=== PATIENT | male | born 1955 | race Caucasian/White ===

== ENCOUNTER → 2016-11-01 | Outpatient (CLI) | payer BC ==
[~2016-11-01] MED LIST: FLUO20CA35 PO; XNX25 PO
--- NOTE | 2016-11-01 09:57 | DIAGNOSTIC IMAGING REPORT ---
(BARIUM SWALLOW) ESOPHAGUS CLINICAL HISTORY: Reflux, epigastric discomfort. COMPARISON STUDY: None FLUOROSCOPY TIME: 1.1 minute. 25 fluoroscopic spot images were acquired.. FINDINGS: The patient swallowed effervescent granules and barium without difficulty. Rapid sequence swallowing in the AP and lateral projections reveal no aspiration. No esophageal masses or ulcerations were visualized. There is mild reflux. The patient swallowed a 1/2 inch barium tablet which freely passed into the stomach. IMPRESSION: 1. No mass identified 2. Mild reflux 3. The patient swallowed a 1/2 inch barium tablet which freely passed the stomach Electronically signed by: Ruben Gamble M.D. 11/01/2016 9:56 AM Dictated Date/Time: 11/01/2016 9:54 AM
== END | disposition home or self-care (01) ==
LOC: C.RAD 09:25
PROVIDERS: ATTEND Internal Medicine Gastroenterology
DX: K21.9 Gastro-esophageal reflux disease without esophagitis (principal)

== ENCOUNTER 2018-01-02 01:52 | Emergency (ER) | payer BC ==
[~2018-01-02] VITALS: Ht 188 cm; Wt 95.8 kg
[2018-01-02 01:58] VITALS: TEMP 36.7; Ht 188 cm; Wt 95.8 kg
[2018-01-02 02:27] LABS: BASO % 0.3 %; BASO ABS # 0.02 K/uL (0-0.2); EOS % 2.3 %; EOS ABS # 0.14 K/uL (0-0.5); HEMATOCRIT 40.6 % (42-52); HEMOGLOBIN 13.7 g/dL (14.0-18.0); IG# 0.02 K/uL (0.00-0.02); LYMPH % 20.7 %; LYMPH ABS # 1.28 K/uL (1.2-3.4); MEAN CELL VOLUME 82.2 fL (80-100); MEAN CORPUSCULAR HEMOGLOBIN 27.7 pg (25-34); MEAN CORPUSCULAR HGB CONC 33.7 g/dl (32-36); MONO % 9.1 %; MONO ABS # 0.56 K/uL (0.11-0.59); NEUT % 67.3 %; NEUT ABS # 4.16 K/uL (1.4-6.5); PLATELET COUNT 193 K/uL (130-400); RED CELL DISTRIBUTION WIDTH CV 13.2 % (11.5-14.5); RED CELL DISTRIBUTION WIDTH SD 39.9 fL (36.4-46.3); WHITE BLOOD COUNT 6.18 K/uL (4.8-10.8)
[2018-01-02] MEDS ORDERED: DIPHTHERIA/TETANUS/PERTUSSIS 0.5 ML SYR/VIAL IM. ONE (02:30)
[2018-01-02 02:45] LABS: ALBUMIN 3.9 gm/dl (3.4-5.0); ALT/SGPT 26 U/L (12-78); AST/SGOT 20 U/L (15-37); BLOOD UREA NITROGEN 28 mg/dl (7-18); CALCIUM 9.4 mg/dl (8.5-10.1); CARBON DIOXIDE 27 mmol/L (21-32); CREATININE 1.37 mg/dl (0.60-1.40); GLUCOSE 99 mg/dl (70-99); POTASSIUM 3.9 mmol/L (3.5-5.1); SODIUM 136 mmol/L (136-145)
[2018-01-02] MEDS ORDERED: SODIUM CHLORIDE 0.9% 1000ML 1,000 ML IV STA (02:49)
[2018-01-02 02:55] LABS: ALKALINE PHOSPHATASE 83 U/L (45-117); TOTAL PROTEIN 7.5 gm/dl (6.4-8.2)
[2018-01-02 03:05] VITALS: O2SAT 98
[2018-01-02] MEDS ORDERED: ALBUTEROL HFA 8 GM INHALER INH STA (03:15)
[2018-01-02 03:41] VITALS: BP 146/98; PULSE 77
[2018-01-02] MEDS ORDERED: AZITTAB PO (03:52)
--- NOTE | 2018-01-02 04:39 | EMERGENCY ROOM VISIT NOTE ---
History First contact with patient: 01:55 Chief Complaint: FALL Stated Complaint: FALL/LACERATION/SHOULDER INJURY History of Present Illness The patient is a 62 year old male who presents to the Emergency Room with complaints of near syncopal fall or getting up to go the bathroom who hit his shoulder and head. Patient states he has been suffering from a cold all week. Other members in his family are sick. Patient complains of right shoulder pain , cough and congestion. Patient states he did not completely pass out. Patient denies headache, neck pain, chest pain, dyspnea, back pain, numbness, tingling, localized weakness. Tetanus is current. Review of Systems An 10 system review of systems was completed with positives and pertinent negatives listed in the HPI. Past Medical/Surgical History Orthopedic problems Social History Smoking Status: Never Smoker Smokeless Tobacco Use: No Alcohol Use: occasionally Drug Use: none Marital Status: Housing Status: lives with family Occupation Status: employed Current/Historical Medications Scheduled Azithromycin (Zithromax Z-Ministerio), 0 PO UD Fluoxetine (Prozac), 20 MG PO DAILY Physical Exam Vital Signs Date Time Temp Pulse Resp B/P (MAP) Pulse Ox O2 Delivery O2 Flow Rate FiO2 01/02/18 03:41 77 22 146/98 Room Air 01/02/18 03:05 66 19 146/98 98 Room Air 01/02/18 02:13 73 01/02/18 02:08 Room Air 01/02/18 01:58 36.7 68 20 137/93 98 Room Air Physical Exam PHYSICAL EXAM: VITALS: Vitals are noted on the nurse's note and reviewed by myself. Vital signs stable. GENERAL: Pleasant male answering questions appropriately, in no acute distress, nondiaphoretic, well-developed well-nourished. SKIN: Left cheek with superficial abrasion that appears clean without foreign body. The rest of the skin was without obvious lacerations or abrasions. Capillary reflex less than 2 seconds. HEAD: Normocephalic atraumatic. EARS: External auditory canals clear, tympanic membranes pearly casillas without erythema or effusion bilaterally. No hemotympanums. No garcia sign. No mastoid tenderness. EYES: Pupils equal round and reactive to light and accommodation. Conjunctivae without injection, sclerae without icterus. Extraocular movements intact. NOSE: Patent, turbinates without inflammation or discharge. No sinus tenderness. No septal hematoma or bleeding. FACE: No facial bone tenderness. Full range of motion of the jaw without tenderness. MOUTH: Mucous membranes moist. Pharynx without erythema or exudate. Uvula midline. Airway patent. Tongue does not deviate. NECK: Supple without nuchal rigidity. Cervical spine is nontender. Full range of motion of the neck without tenderness. No JVD. HEART: Regular rate and rhythm without murmurs gallops or rubs. LUNGS: Clear to auscultation bilaterally without wheezes, rales or rhonchi. No dullness to percussion. No retractions or accessory muscle use. No chest wall tenderness. ABDOMEN: Positive bowel sounds x 4. Normal tympanic percussion. Soft, nontender, without masses or organomegaly. No guarding or rebound tenderness. MUSCULOSKELETAL: No tenderness of the thoracic or lumbar spine. Right AC tender to palpation concerning for separation. Increased pain with range of motion of the right shoulder. No right clavicular tenderness. Full range of motion without tenderness to palpation in all other extremities. Normal gait. NEURO: Patient was alert and oriented to person place and time. Normal sensation to light and sharp touch. Cerebellar function intact. No focal neurological deficits. Medical Decision & Procedures Laboratory Results 01/02/18 02:15 Red Blood Count 4.94, Mean Corpuscular Volume 82.2, Mean Corpuscular Hemoglobin 27.7, Mean Corpuscular Hemoglobin Concent 33.7, Mean Platelet Volume 10.0, Neutrophils (%) (Auto) 67.3, Lymphocytes (%) (Auto) 20.7, Monocytes (%) (Auto) 9.1, Eosinophils (%) (Auto) 2.3, Basophils (%) (Auto) 0.3, Neutrophils # (Auto) 4.16, Lymphocytes # (Auto) 1.28, Monocytes # (Auto) 0.56, Eosinophils # (Auto) 0.14, Basophils # (Auto) 0.02 01/02/18 02:15 Test 01/02/18 02:15 White Blood Count 6.18 K/uL (4.8-10.8) Red Blood Count 4.94 M/uL (4.7-6.1) Hemoglobin 13.7 g/dL (14.0-18.0) Hematocrit 40.6 % (42-52) Mean Corpuscular Volume 82.2 fL (80-100) Mean Corpuscular Hemoglobin 27.7 pg (25-34) Mean Corpuscular Hemoglobin Concent 33.7 g/dl (32-36) Platelet Count 193 K/uL (130-400) Mean Platelet Volume 10.0 fL (7.4-10.4) Neutrophils (%) (Auto) 67.3 % Lymphocytes (%) (Auto) 20.7 % Monocytes (%) (Auto) 9.1 % Eosinophils (%) (Auto) 2.3 % Basophils (%) (Auto) 0.3 % Neutrophils # (Auto) 4.16 K/uL (1.4-6.5) Lymphocytes # (Auto) 1.28 K/uL (1.2-3.4) Monocytes # (Auto) 0.56 K/uL (0.11-0.59) Eosinophils # (Auto) 0.14 K/uL (0-0.5) Basophils # (Auto) 0.02 K/uL (0-0.2) RDW Standard Deviation 39.9 fL (36.4-46.3) RDW Coefficient of Variation 13.2 % (11.5-14.5) Immature Granulocyte % (Auto) 0.3 % Immature Granulocyte # (Auto) 0.02 K/uL (0.00-0.02) Anion Gap 5.0 mmol/L (3-11) Est Creatinine Clear Calc Drug Dose 65.9 ml/min Estimated GFR () 64.1 Estimated GFR (Non- 55.3 BUN/Creatinine Ratio 20.1 (10-20) Calcium Level 9.4 mg/dl (8.5-10.1) Total Bilirubin 0.3 mg/dl (0.2-1) Direct Bilirubin < 0.1 mg/dl (0-0.2) Aspartate Amino Transf (AST/SGOT) 20 U/L (15-37) Alanine Aminotransferase (ALT/SGPT) 26 U/L (12-78) Alkaline Phosphatase 83 U/L (45-117) Troponin I < 0.015 ng/ml (0-0.045) Total Protein 7.5 gm/dl (6.4-8.2) Albumin 3.9 gm/dl (3.4-5.0) Thyroid Stimulating Hormone (TSH) 4.760 uIu/ml (0.300-4.500) Medications Administered Medications (Trade) Dose Ordered Sig/Bi Route Start Time Stop Time Status Last Admin Dose Admin Diphtheria/ Pertussis/Tetanus Vacc (Adacel Inj) 0.5 ml ONCE ONCE IM. 01/02/18 02:30 01/02/18 02:31 DC 01/02/18 02:32 0.5 ML Sodium Chloride 1,000 ml @ 999 mls/hr Q1H1M STAT IV 01/02/18 02:49 01/02/18 03:49 DC 01/02/18 03:05 999 MLS/HR Albuterol (Ventolin Hfa Inhaler) 2 puffs ONE STAT INH 01/02/18 03:15 01/02/18 03:16 DC 01/02/18 03:24 2 PUFFS ED Course Prior records/ancillary studies reviewed. Triage Nursing notes reviewed. Additional history obtained from EMS and family The patient's history was concerning for near syncope. Differential diagnosis: Etiologies such as shoulder injury, vasovagal event, infection, hypoglycemia, electrolyte abnormalities, cardiac sources, intracerebral event, toxicologic, neurologic, as well as others were entertained. Physical examination: Patient is alert and well-appearing ER treatment provided: IV hydration with normal saline, wound care by nursing and tetanus On reassessment the patient felt better. Diagnostics interpretation by me: ECG: Normal sinus, normal intervals, no acute ST-T wave changes. Impression normal sinus rhythm interpreted by myself The labs revealed stable H&H. Negative troponin Imaging studies: Shoulder x-ray concerning for AC separation without fracture per my interpretation Checks x-ray with no acute consolidation, pneumothorax or free air per my interpretation This appears to be consistent with shoulder injury, head injury, near syncopal event and bronchitis. Patient's been sick for the week. Patient states occasionally he needs Zithromax for his bronchitis. He was advised to start this he was still sick by the weekend. He was placed in a sling and neurovascular status was rechecked after placement and is intact. He follows with Dr. Huitron and was advised to call today for follow-up appointment. Patient was neurovascularly and neurologically intact. He is well-appearing. No other injuries are noted. He requested to leave. He ambulated around the ER without difficulties. He was advised to take medications as directed, rest and follow-up with family care and orthopedics in a few days or here in the ER sooner for chest pain, syncope, severe pain, numbness, tingling, worsening signs or symptoms or as needed.. By the evaluation outlined above emergent etiologies such as hypoglycemia, electrolyte abnormalities, cardiac sources, intracerebral event, toxicologic, neurologic,as well as others were deemed relatively unlikely. The pt informed about the findings as listed above. All questions were answered and pleased with the treatment. Return instructions were outlined and the patient was discharged in stable condition. Outpatient prescription management: Zithromax Referral: The patient was referred back to their primary care physician and orthopedics for follow-up in 2 to 3 days for a recheck of the current condition. Case reviewed with my attending The chart was completed utilizing [email or web address] Speech voice recognition software. Grammatical errors, random word insertions, pronoun errors, and incomplete sentences are an occassional consequence of this system due to software limitations, ambient noise, and hardware issues. Any formal questions or concerns about the content, text, or information contained within the body of this dictation should be directly addressed to the physician library media assistant for clarification. Medical Decision as above Head Trauma GCS Score: 15 Medication Reconcilliation Current Medication List: was personally reviewed by me Blood Pressure Screening Patient's blood pressure: Elevated blood pressure Blood pressure disposition: Elevated BP felt to be situational Impression Primary Impression: Acromioclavicular separation Additional Impressions: Facial abrasion Head injury Near syncope Departure Information Dispostion Home / Self-Care Condition GOOD Prescriptions Azithromycin (ZITHROMAX Z-MINISTERIO) 250 Mg Tab 0 PO UD, #1 PKT 2 TABS DAY 1, THEN 1 TAB DAILY FOR 4 DAYS Prov: Doris Davila .DAYRON 01/02/18 Forms HOME CARE DOCUMENTATION FORM, Work Instructions, Return To Work: 2 days IMPORTANT VISIT INFORMATION Patient Instructions Bronchitis Acute, My [facility], ED Abrasion, ED Sprain AC Joint, ED Head Injury Closed Additional Instructions Antibiotic ointment and bandage to the areas until healed. Follow up with family doctor or return for any signs of infection (increasing redness, swelling , drainage, or fever). Keep covered when in sun until fully healed then SPF 50 or higher until scar healed. Head injury: Read head injury handout and return for any symptoms. Tylenol 1000 mg as needed for pain (Maximum 3000 mg Tylenol in 24 hr period). Avoid alcohol and contact sports/activities for one week and follow up with family doctor prior to returning to these activities if still symptomatic. Ice and elevate head. AC separation: Ice compresses for 20 minutes at a time four times daily for 2-3 days. Use the sling as instructed. Remove your arm from the sling 4-6 times a day and move all the joints around to keep them loose. Rest and elevate your injury. Continue current medications. Return to the ER immediately for any numbness, tingling, severe pain, extreme swelling in the extremity or as needed. Call your Orthopedics tomorrow to arrange follow up for your injury. Bronchitis: Albuterol Inhaler: Take 2 puffs four times daily for five days, then as needed. Z-pack as directed. All antibiotics can cause diarrhea. If this occurs and you feel worse or it does not resolve in 1-2 days follow up with your doctor or return to the Emergency Department as this could be signs of serious underlying problems. Any medication can cause an allergic reaction, stop the pills immediately and return to the ER for rash, hives, breathing difficulties, or swelling. Rest and drink plenty of fluids. Avoid smoke/smoking, fumes, dust, or any triggers in the past that may have affected your breathing. Continue current medications. Return to the ER for chest pain, difficulty breathing, fevers, vomiting, worsening of your condition, or as needed. Follow up with your primary physician this week for a recheck of your current condition. Work Instructions Return To Work: 2 days Problem Qualifiers Primary Impression: Acromioclavicular separation Encounter type: initial encounter Laterality: right Qualified Codes: S43.101A - Unspecified dislocation of right acromioclavicular joint, initial encounter Additional Impressions: Facial abrasion Encounter type: initial encounter Qualified Codes: S00.81XA - Abrasion of other part of head, initial encounter
--- NOTE | 2018-01-02 06:41 | DIAGNOSTIC IMAGING REPORT ---
R SHOULDER MIN 2 VIEWS ROUTINE HISTORY: 62 years-old Male fall, pain fall with acute right shoulder pain COMPARISON: Chest radiograph of same day, chest radiographs 08/15/2007 TECHNIQUE: 3 views of the right shoulder FINDINGS: Mild degenerative changes about the glenohumeral and a, clavicular joints. There is widening of the AC joint with elevation of the distal clavicle in relation to the acromium x 1.7 cm. Coracoclavicular interval measures 2.1 cm, previously 9 mm on study dated 08/15/2007. No acute fracture identified. Imaged lung irwin appear clear. IMPRESSION: 1. Mild degenerative changes about the right shoulder without acute fracture. 2. Widened AC joint with elongated coracoclavicular interval suggests type III AC joint injury, new from comparison. Correlate with point tenderness. The above report was generated using voice recognition software. It may contain grammatical, syntax or spelling errors. Electronically signed by: Macario Praasd M.D. 01/02/2018 6:40 AM Dictated Date/Time: 01/02/2018 6:37 AM
--- NOTE | 2018-01-02 07:31 | DIAGNOSTIC IMAGING REPORT ---
CHEST ONE VIEW PORTABLE CLINICAL HISTORY: 62 years-old Male presenting with cough. TECHNIQUE: Portable upright AP view of the chest was obtained. COMPARISON: 08/15/2007. FINDINGS: Cardiomediastinal silhouette normal. Lungs and pleural spaces clear. Osseous structures normal. Upper abdomen normal. IMPRESSION: 1. No acute cardiopulmonary disease. Electronically signed by: Corey Zaldivar M.D. 01/02/2018 7:30 AM Dictated Date/Time: 01/02/2018 6:51 AM
== END 2018-01-02 04:03 | disposition home or self-care (01) ==
LOC: EDBD 01:52 → C.EDA 01:53
DX: S43.101A Unspecified dislocation of right acromioclavicular joint, initial encounter (principal); S00.81XA Abrasion of other part of head, initial encounter; S09.90XA Unspecified injury of head, initial encounter; R55 Syncope and collapse; W19.XXXA Unspecified fall, initial encounter; Z23 Encounter for immunization